=== PATIENT | male | born 1965 | race Caucasian/White ===

== ENCOUNTER 2018-05-27 06:01 | Day surgery (SDC) | payer BC ==
[~2018-05-27] VITALS: Ht 180.3 cm; Wt 110.0 kg
[~2018-05-27 06:01] MED LIST: None at this Time
[2018-05-27] MEDS ORDERED: ROPIvacaine/PF 0.5%, 30 ML ONE (06:17)
[2018-05-27] MEDS ORDERED: LIDOCAINE 1%-EPI 1:100K, 30ML ONE (06:17)
[2018-05-27] MEDS ORDERED: LACTATED RINGERS 1,000 ML IV SCH (06:42)
[2018-05-27 06:46] VITALS: BP 128/81
[2018-05-27] MEDS ORDERED: ONDANSETRON ODT 8 MG PO ONE (07:00)
[2018-05-27] MEDS ORDERED: ACETAMINOPHEN 500 MG TABLET PO ONE (07:00)
[2018-05-27] MEDS: GABAPENTIN 300 MG CAPSULE PO ONE ×2 (07:00→07:28)
[2018-05-27] MEDS ORDERED: FAMOTIDINE 20 MG TABLET PO ONE (07:00)
[2018-05-27] MEDS ORDERED: FENTANYL PF 100 MCG/2ML ONE ×3 (07:17→09:28)
[2018-05-27] MEDS ORDERED: MIDAZOLAM 1 MG/ML, 2ML ONE (07:18)
[2018-05-27] MEDS ORDERED: EPHEDRINE 50 MG/ML, 1ML ONE (07:51)
[2018-05-27] MEDS ORDERED: KETOROLAC 30 MG/1 ML ONE (07:51)
[2018-05-27] MEDS ORDERED: ONDANSETRON 2MG/ML, 2ML ONE (08:13)
[2018-05-27] MEDS ORDERED: DEXAMETHASONE 4 MG/ML, 1ML ONE (08:13)
[2018-05-27] MEDS ORDERED: CEFAZOLIN 1,000 MG ONE (08:13)
[2018-05-27] MEDS ORDERED: PROPOFOL 10 MG/ML, 20ML ONE (08:13)
[2018-05-27] MEDS ORDERED: MORPHINE SULFATE 4 MG/ML, 1ML IVPush PRN (08:30)
[2018-05-27] MEDS ORDERED: OXYcodone 5 MG/5 ML ORAL.SOL UDC PO PRN (08:30)
[2018-05-27] MEDS ORDERED: PROMETHAZINE 25 MG/ML, 1ML IV PRN (08:30)
[2018-05-27] MEDS ORDERED: DIAZEPAM 5 MG/ML, 2ML IVPush PRN (08:30)
[2018-05-27] MEDS ORDERED: ONDANSETRON 2MG/ML, 2ML IV PRN (08:30)
[2018-05-27] MEDS ORDERED: ONDANSETRON ODT 8 MG PO PRN (08:30)
[2018-05-27] MEDS ORDERED: MORPHINE SULFATE 4 MG/ML, 1ML ONE (09:28)
[2018-05-27] MEDS ORDERED: OXYcodone 5 MG/5 ML ORAL.SOL UDC ONE (09:29)
[2018-05-27] MEDS: FENTANYL PF 100 MCG/2ML IV PRN ×3 (09:33→09:57)
== END 2018-05-27 13:20 | disposition home or self-care (01) ==
LOC: OUT 06:01
PROVIDERS: ATTEND Orthopaedic Surgery
DX: S83.232A Complex tear of medial meniscus, current injury, left knee, initial encounter (principal); S83.512A Sprain of anterior cruciate ligament of left knee, initial encounter; M94.262 Chondromalacia, left knee; J45.909 Unspecified asthma, uncomplicated; X58.XXXA Exposure to other specified factors, initial encounter; Y93.89 Activity, other specified; Y92.89 Other specified places as the place of occurrence of the external cause; Y99.8 Other external cause status; Z98.890 Other specified postprocedural states; Z72.89 Other problems related to lifestyle
CPT/HCPCS: 29881; 29888; 64447; 73560; 76000; C1713; J0690; J1100; J1885; J2250; J2405; J2704; J2795; J3010; J3490; J7120; Q0162